=== PATIENT | male | born 1975 | race Caucasian/White ===

== ENCOUNTER 2022-12-20 13:46 | Emergency (ER) | payer SELFPAY ==
[2022-12-20 13:48] VITALS: BP 131/91; PULSE 92; RESP 15; TEMP 37.2; O2SAT 97; BMI 22.6
[2022-12-20 14:00] VITALS: PULSE 80
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
--- NOTE | 2022-12-20 14:38 | CTR_ITS ---
PROCEDURE INFORMATION: Exam: CT Abdomen And Pelvis With Contrast Exam date and time: 12/20/2022 3:23 PM Age: 47 years old Clinical indication: Abdominal pain; Epigastric; Additional info: Epigastric pain.No history of trauma or recent surgery is provided. TECHNIQUE: Imaging protocol: Computed tomography of the abdomen and pelvis with contrast. 199image(s) are provided. Radiation optimization: All CT scans at this facility use at least one of these dose optimization techniques: automated exposure control; mA and/or kV adjustment per patient size (includes targeted exams where dose is matched to clinical indication); or iterative reconstruction. Contrast material: OMNI 350; Contrast volume: 100 ml; Contrast route: INTRAVENOUS (IV); Other technique: Axial images are available with sagittal and coronal reconstruction views. Automated dose exposure control is utilized. The DLP is 390.02. REPORTING DATA: Count of CT and Cardiac NM exams in prior 12 months: This patient has received 0 known CTs and 0 known cardiac nuclear medicine studies in the 12 months prior to the current study. COMPARISON: No relevant prior studies available. RADIATION DOSE METRICS: Total DLP (mGy-cm): 390.02 FINDINGS: Lungs: No lobar consolidation is appreciated. Liver: There appears to be some mild hepatic steatosis and hepatomegaly. Gallbladder and bile ducts: The gallbladder is slightly contracted with some trace sludge. This may exaggerate the wall thickness. Pancreas: No pancreatic ductal dilatation or calcification is currently appreciated. Spleen: Unremarkable. Adrenal glands: Unremarkable. Kidneys and ureters: There is relatively homogeneous renal parenchymal enhancement with no radiopaque obstructive calculus or hydronephrosis appreciated. Stomach and bowel: Some aspects of the colon are undistended. This may also be peristaltic related. This can also be seen with previous inflammation for example at the ascending colon. There is abundant stool present limiting mucosal detail evaluation. There is a small sliding-type hiatal hernia demonstrated with slight gastroesophageal fold thickening. There appears to be some minimal duodenal C-loop diverticular averaging. There are some large and small bowel fluid levels overall with colonic predominance. Appendix: No evidence of appendicitis. Intraperitoneal space: No free air or free fluid collections are appreciated. Vasculature: No abdominal aortic aneurysmal dilatation or periaortic fluid is appreciated. Lymph nodes: There are subcentimeter predominant para-aortic and mesenteric lymph nodes overall present. Urinary bladder: The bladder is incompletely fluid filled for evaluation which may exagerate the wall thickness. This can also be seen with post inflammation sequela. Reproductive: There appears to be some slight prostate hypertrophy. Bones/joints: Osseous alignment is maintained.No displaced fracture or dislocation is appreciated. Soft tissues: No radiopaque foreign body or subcutaneous emphysema is appreciated. CT/CT abdomen pelvis w con* [id number] IMPRESSION: 1. There is some slight hepatomegaly and steatosis type appearance overall. 2. The gallbladder is contracted with trace sludge which may exaggerate the wall thickness. Consider hepatic and biliary profile studies as well as right upper quadrant ultrasound. 3. There is an unremarkable overall appearance of the appendix with no abnormal dilatation appreciated. 4. The bladder is incompletely fluid filled for evaluation which may exagerate the wall thickness. This can also be seen with post inflammation sequela. 5. The bowel gas pattern appears nonobstructive overall. There are some fluid levels both large and small.Consider if there is a history of diarrhea or gastroenteritis. 6. There is a small sliding-type hiatal hernia demonstrated with slight gastroesophageal fold thickening.
[2022-12-20] MEDS: LORazepam 1 mg Tablet PO (14:42)
[2022-12-20] MEDS: lactated ringers 1,000 ML 999 ML IV (14:42)
[2022-12-20] MEDS: famotidine 20 mg/2 mL INJ 40 MG IVP (14:42)
[2022-12-20 14:46] VITALS: BP 147/86; PULSE 84; RESP 16; O2SAT 97
--- NOTE | 2022-12-20 14:54 | PC.NURSE ---
Pt is resting in bed intermittently. Pt is pleasant and states that he is detoxing and is having intermittent numbness in his hands and feet. Pt reports to nurse that he has not been able to sleep, eat or drink normally, and has been having intermittent anxiety related to his drinking. Pt gave me permission to give information to his over the phone.
[2022-12-20 15:27] LABS: Basophils % 1.1 %; Eosinophils % 0.3 %; Hematocrit 42.7 % (42.0-52.0); Hemoglobin 14.4 g/dL (11.7-16.6); Lymphocytes # 0.5 10^3/uL (0.8-4.8); Lymphocytes % 12.1 %; Mean Corpuscular HGB Conc 33.7 g/dL (30.0-36.0); Mean Corpuscular Hemoglobin 31.9 pg (28.0-34.0); Mean Corpuscular Volume 94.7 fl (80-94); Mean Platelet Volume 9.9 fL (7.4-10.4); Monocytes # 0.7 10^3/uL (0.2-0.9); Monocytes % 18.4 %; Neutrophils # 2.59 10^3/uL (1.8-7.7); Neutrophils % 68.1 %; Nucleated Red Blood Cells % 0 %; Platelet Count 105 10^3/cmm (130-400); Red Blood Count 4.51 10^6/uL (4.1-5.3); Red Cell Distribution Width 12.2 % (12.1-15.1); White Blood Count 3.8 10^3/uL (4.0-10.0)
[2022-12-20] MEDS: iohexol 350 mg/mL 500 mL Btl (per mL) IV (15:36)
[2022-12-20 15:51] LABS: Alanine Aminotransferase 75 U/L (0-41); Albumin Level 3.8 g/dL (3.5-5.2); Alkaline Phosphatase 69 U/L (40-130); Anion Gap 21.2 (5-19); Aspartate Amino Transferase 112 U/L (0-40); Blood Urea Nitrogen 6 mg/dL (6-20); Calcium 8.6 mg/dL (8.5-10.5); Carbon Dioxide 19 mmol/L (22-29); Chloride 95 mmol/L (98-107); Globulin 3.6 g/dL (1.3-4.6); Glomerular Filtration Rate 232.6 mL/min (90-130); Glucose 75 mg/dL (65-115); Magnesium 1.8 mg/dL (1.7-2.3); Osmolality Calculated 268 mOsm/kg (285-295); Potassium 4.2 mmol/L (3.5-5.1); Sodium 131 mmol/L (136-145); Total Bilirubin 0.3 mg/dL (0.15-1.2); Total Protein 7.4 g/dL (6.6-8.7)
[2022-12-20 16:00] VITALS: PULSE 82; RESP 16; TEMP 36.7; O2SAT 100
[2022-12-20 16:00] LABS: Alcohol Level < 10 mg/dL (0-10)
[2022-12-20 17:28] VITALS: BP 140/62; PULSE 82; RESP 16; TEMP 36.7; O2SAT 100
--- NOTE | 2022-12-26 13:08 | DCPLANNER ---
medical territory manager called patient due to no primary care physician - no answer at this time.
== END 2022-12-20 17:00 | disposition home or self-care (01) ==
PROVIDERS: Emergency Provider Emergency Medicine
DX: F41.1 Generalized anxiety disorder (principal); Z81.1 Family history of alcohol abuse and dependence; K44.9 Diaphragmatic hernia without obstruction or gangrene
CPT/HCPCS: 36415; 74177; 80053; 80307; 83735; 85025; 96374; 99284; J3490; J7120; Q9967